=== PATIENT | female | born 1985 | race Caucasian/White ===

== ENCOUNTER 2023-11-10 17:49 | Emergency (ER) | payer BC ==
[~2023-11-10] VITALS: Ht 170.2 cm; Wt 59.9 kg
[2023-11-10 17:57] VITALS: BP 153/86; PULSE 116; RESP 16; TEMP 98.3; O2SAT 99
[2023-11-10 18:40] LABS: BASOPHILS % (AUTO) 0.8 % (0.0-2.0); HEMATOCRIT 42.1 % (36-48); HEMOGLOBIN 14.6 g/dL (12.0-16.0); LYMPHOCYTES # (AUTO) 1.3 K/uL (2.5-16.5); LYMPHOCYTES % (AUTO) 30.3 % (20.5-51.1); MEAN CORPUSCULAR HEMOGLOBIN 33 pg (27-31); MEAN CORPUSCULAR HGB CONC 35 g/dL (33-37); MEAN CORPUSCULAR VOLUME 94.1 fL (80-94); MONOCYTES # (AUTO) 0.4 K/uL (0.8-1.0); MONOCYTES % (AUTO) 8.6 % (1.7-9.3); NEUTROPHILS # (AUTO) 2.7 K/uL (1.8-7.7); NEUTROPHILS % (AUTO) 60.3 % (42.2-75.2); PLATELET COUNT (AUTO) 244 K/uL (140-450); RED BLOOD CELL COUNT(AUTO) 4.47 MIL/uL (4.20-5.40); RED CELL DISTRIBUTION WIDTH 13.3 % (11.6-13.7); WHITE BLOOD COUNT (AUTO) 4.4 K/uL (4.8-10.8)
[2023-11-10 19:01] LABS: ALANINE AMINOTRANSFERASE 43 U/L (12-78); ALBUMIN 3.9 g/dL (3.4-5.0); ALCOHOL, BLOOD 354 mg/dL (<10); ALKALINE PHOSPHATASE 57 U/L (50-136); ANION GAP 17.4 (8-16); ASPARTATE AMINOTRANSFERASE 48 U/L (15-37); CALCIUM 8.3 mg/dL (8.5-10.1); CARBON DIOXIDE 25.7 mmol/L (21-32); CHLORIDE 98 mmol/L (98-107); CREATININE 0.8 mg/dL (0.6-1.3); GFR ARICAN-AMERICAN 104 mL/min (>90); GFR NON ARICAN-AMERICAN 86 mL/min (>90); GLUCOSE 95 mg/dL (74-106); POTASSIUM 3.1 mmol/L (3.5-5.1); SODIUM SERUM 138 mmol/L (136-145); TOTAL BILIRUBIN 1.4 mg/dL (0.0-1.0); TOTAL PROTEIN, SERUM 7.3 g/dL (6.4-8.2); UREA NITROGEN, BLOOD 7 mg/dL (7-18)
[2023-11-10 19:42] LABS: SALICYLATE < 2.8 mg/dL (2.8-20.0)
[2023-11-10] MEDS: NACL 0.9% 1,000 ML IV ONE ×2 (19:42→22:00)
[2023-11-10] MEDS: POTASSIUM CHLORIDE 10 MEQ TABER PO ONE (19:55)
[2023-11-10 20:46] LABS: AMPHETAMINE, URINE NEGATIVE ng/ml (NEG <=1000); BARBITURATE, URINE NEGATIVE ng/ml (NEG <=200); BENZODIAZEPINE, URINE NEGATIVE ng/mL (NEG <=200); CANNABINOID, URINE NEGATIVE ng/mL (NEG <=50); COCAINE, URINE NEGATIVE ng/mL (NEG <=300); OPIATE, URINE NEGATIVE ng/mL (NEG <=2000); PHENCYCLIDINE SCREEN,URINE NEGATIVE ng/mL (NEG <=25)
[2023-11-10] MEDS: diphenhydrAMINE 50 MG/ML VIAL IVP ONE (22:09)
[2023-11-10] MEDS: ONDANSETRON 4 MG/2 ML VIAL IVP ONE (22:10)
[2023-11-10 23:04] VITALS: BP 128/65; PULSE 97; RESP 16; TEMP 98.3
[2023-11-10 23:05] VITALS: O2SAT 97
== END 2023-11-11 01:54 | disposition home or self-care (01) ==
LOC: MED 17:49
DX: F10.129 Alcohol abuse with intoxication, unspecified (principal); E87.6 Hypokalemia; R45.851 Suicidal ideations; Z20.822 Contact with and (suspected) exposure to COVID-19; Y90.8 Blood alcohol level of 240 mg/100 ml or more
CPT/HCPCS: 36415; 80053; 80305; 81025; 85025; 87426; 96361; 96374; 96375; 99285; G0480; G0482; J1200; J2405; J7030